=== PATIENT | female | born 2000 | race Caucasian/White ===

== ENCOUNTER 2022-11-24 11:02 | Outpatient (OUT) | payer BC, SELFPAY ==
[2022-11-24 10:11] LABS: Basophils Absolute Auto 0.1 10^3/uL (0.0-0.1); Basophils Percent Auto 0.5 % (0.2-2.0); Eosinophils Absolute Auto 0.1 10^3/uL (0.0-0.7); Eosinophils Percent Auto 1.2 % (0.9-7.0); Hematocrit 45.8 % (36.0-48.0); Hemoglobin 15.1 g/dL (12.0-16.0); Immature Granulocytes Abs Auto 0.04 10^3/uL (0.00-0.03); Immature Granulocytes Pct Auto 0.4 % (0.0-0.5); Lymphocytes Absolute Auto 3.2 10^3/uL (1.2-3.8); Lymphocytes Percent Auto 30.4 % (20.5-60.0); Mean Corpuscular Hemoglobin 28.8 pg (26.7-34.0); Mean Corpuscular Volume 87.2 fL (81.0-99.0); Mean Platelet Volume 11.1 fL (9.5-13.5); Monocytes Absolute Auto 0.6 10^3/uL (0.3-0.8); Monocytes Percent Auto 5.8 % (1.7-12.0); Neutrophils Absolute Auto 6.4 10^3/uL (1.4-6.5); Neutrophils Percent Auto 61.7 % (43.0-75.0); Platelet Count 344 10^3/uL (150-450); Red Blood Count 5.25 10^6/uL (4.20-5.40); Red Cell Distribution Width 12.4 % (11.0-15.0); White Blood Count 10.4 10^3/uL (4.0-11.0)
[2022-11-24 14:28] LABS: Alanine Aminotransferase 26 U/L (14-59); Albumin Globulin Ratio 0.9; Albumin Level 3.8 g/dL (3.4-5.0); Alkaline Phosphatase 102 U/L (46-116); Aspartate Amino Transferase 9 U/L (15-37); Bilirubin Total 0.3 mg/dL (0.2-1.0); Carbon Dioxide 30.1 mmol/L (21.0-32.0); Chloride 105 mmol/L (98-107); Chol HDL Ratio 3.5; Cholesterol 140 mg/dL (104-227); Estimated GFR (African America >60 (>=60); Estimated GFR (Non-African Ame >60 (>=60); Globulin 4.4 g/dL; Glucose 98 mg/dL (74-106); HDL Cholesterol 40 mg/dL (29-69); LDL Cholesterol Calculated 80.8 mg/dL; Potassium 4.1 mmol/L (3.5-5.1); Sodium 140 mmol/L (136-145); Thyroid Stimulating Hormone 1.222 uIU/mL (0.516-4.130); Total Protein 8.2 g/dL (6.4-8.2); Triglycerides 96 mg/dL (53-208); VLDL CHOLESTEROL 19.2 mg/dL
[2022-11-25 01:56] LABS: Estimated Average Glucose 108 mg/dL; Glycohemoglobin A1C 5.4 % (4.5-6.2)
== END 2022-11-24 11:03 | disposition home or self-care (01) ==
LOC: LAB 11:02
PROVIDERS: PCP Family Medicine; Visit Provider Family Medicine
DX: Z00.00 Encounter for general adult medical examination without abnormal findings (principal)
CPT/HCPCS: 36415; 80053; 80061; 83036; 84443; 85025

== ENCOUNTER 2023-12-10 11:49 | Outpatient (OUT) | payer BC, SELFPAY ==
[2023-12-10 13:09] LABS: Basophils Absolute Auto 0.1 10^3/uL (0.0-0.1); Basophils Percent Auto 0.4 % (0.2-2.0); Eosinophils Absolute Auto 0.1 10^3/uL (0.0-0.7); Eosinophils Percent Auto 0.7 % (0.9-7.0); Hematocrit 48.3 % (36.0-48.0); Hemoglobin 15.9 g/dL (12.0-16.0); Immature Granulocytes Abs Auto 0.04 10^3/uL (0.00-0.03); Immature Granulocytes Pct Auto 0.3 % (0.0-0.5); Lymphocytes Absolute Auto 4.4 10^3/uL (1.2-3.8); Lymphocytes Percent Auto 32.2 % (20.5-60.0); Mean Corpuscular HGB Conc 32.9 g/dL (29.9-35.2); Mean Corpuscular Hemoglobin 29.1 pg (26.7-34.0); Mean Corpuscular Volume 88.3 fL (81.0-99.0); Mean Platelet Volume 11.4 fL (9.5-13.5); Monocytes Absolute Auto 0.9 10^3/uL (0.3-0.8); Monocytes Percent Auto 6.2 % (1.7-12.0); Neutrophils Absolute Auto 8.3 10^3/uL (1.4-6.5); Neutrophils Percent Auto 60.2 % (43.0-75.0); Platelet Count 430 10^3/uL (150-450); Red Blood Count 5.47 10^6/uL (4.20-5.40); Red Cell Distribution Width 12.5 % (11.0-15.0); White Blood Count 13.7 10^3/uL (4.0-11.0)
[2023-12-10 13:14] LABS: Alanine Aminotransferase 17 U/L (14-59); Albumin Globulin Ratio 1.1; Alkaline Phosphatase 89 U/L (46-116); Anion Gap 15.3; Aspartate Amino Transferase 17 U/L (15-37); BUN Creatinine Ratio 12.2; Bilirubin Total 0.6 mg/dL (0.2-1.0); Calcium 9.8 mg/dL (8.5-10.1); Carbon Dioxide 25.6 mmol/L (21.0-32.0); Chloride 104 mmol/L (98-107); Chol HDL Ratio 2.9; Cholesterol 132 mg/dL (<=200); Estimated GFR (African America >60 (>=60 mL/min/1.73m^2); Estimated GFR (Non-African Ame >60 (>=60 mL/min/1.73m^2); Globulin 3.7 g/dL; Glucose 92 mg/dL (74-106); HDL Cholesterol 46 mg/dL (40-60); LDL Cholesterol Calculated 71.6 mg/dL; Potassium 3.9 mmol/L (3.5-5.1); Sodium 141 mmol/L (136-145); Thyroid Stimulating Hormone 1.794 uIU/mL (0.358-3.740); Total Protein 7.7 g/dL (6.4-8.2); Triglycerides 72 mg/dL (<=150); VLDL CHOLESTEROL 14.4 mg/dL
[2023-12-10 16:09] LABS: Estimated Average Glucose 103 mg/dL; Glycohemoglobin A1C 5.2 % (4.5-6.2)
== END 2023-12-10 11:50 | disposition home or self-care (01) ==
LOC: LAB 11:49
PROVIDERS: PCP Family Medicine; Visit Provider Nurse Practitioner Family
DX: Z00.00 Encounter for general adult medical examination without abnormal findings (principal)
CPT/HCPCS: 80053; 80061; 83036; 84443; 85025

== ENCOUNTER 2024-08-16 12:04 | Outpatient (OUT) | payer SELFPAY ==
--- OUTSIDE RECORDS SUMMARY | 2024-08-16 12:14 | XMS_ITS | Clinical Summary ---
Author Organization [facility] Healthcare Address [address] [place] [address] Care Team Providers Care Senior Energy Trader Name Role Phone Kathya Olivo MD Primary Care Provider [phone] Allergies No known active allergies Medications albuterol HFA 90 mcg/act inhaler Inhale 2 puffs every 4 (four) hours. Active Drysol 20 % external solution Apply 20 % topically in the morning and 20 % before bedtime. 2 Active Apri 0.15-30 MG-MCG tablet Take 1 tablet by mouth in the morning. 3 Active Hospital, Clinic, or Other Facility Administered Medication Ordered Dose Route Frequency Start Date End Date Status etonogestrel-eluting 68 mg contraceptive implant 1 eachIndications:Insertion of Nexplanon 1 each [place] Continuous 03/28/2024 03/28/2027 Active Active Problems No known active problems Family History Medical History Relation Name Comments Diabetes Father Hypertension Father Relation Name Status Comments Father Alive Mother Alive Social History Tobacco Use Types Packs/Day Years Used Date Smoking Tobacco: Never Passive Smoke Exposure: Never Smokeless Tobacco: Never Tobacco Cessation:Counseling Given: Yes Alcohol Use Standard Drinks/Week Comments Never 0 (1 standard drink = 0.6 oz pur e alcohol) Comments Unknown Sex and Gender Information Value Date Recorded Sex Assigned at Not on file Legal Sex Female 10:14 PM EDT Gender Identity Not on file Sexual Orientation Not on file Last Filed Vital Signs Vital Sign Reading Time Taken Comments Blood Pressure 118/72 03/28/2024 10:28 AM EST Pulse 89 08/31/2023 3:25 PM EDT Temperature - - Respiratory Rate - - Oxygen Saturation - - Inhaled Oxygen Concentration - - Weight 89.9 kg (198 lb 1.9 oz) 03/28/2024 10:28 AM EST Height 167.6 cm (5' 6 ) 08/31/2023 3:25 PM EDT Body Mass Index 31.98 08/31/2023 3:25 PM EDT Plan of Treatment Health Maintenance Due Date Last Done Comments Influenza Vaccine (Season Ended) 2024 Insurance [employer] [place] Care Teams Senior Energy Trader Relationship Specialty Start Date End Date Kathya Olivo MD PCP - General Family Medicine 07/23/22
--- OUTSIDE RECORDS SUMMARY | 2024-08-16 12:14 | XMS_ITS | Clinical Summary ---
Author Organization [facility] Address [address] [place] [address] Care Team Providers Care Photovoltaic Fabrication Technician Name Role Phone Kathya Olivo MD Primary Care Provider [phone] Allergies No known active allergies Medications Norethindrone Acet-Ethinyl Est 1.5-30 mg-mcg Take 1 tablet by mouth once daily. Active omeprazole (PRILOSEC) 40 mg capsule Take 40 mg by mouth once daily. Active norgestimate 0.25 mg-ethinyl estradiol 35 mcg (SPRINTEC, ORTHO-CYCLEN) 0.25-35 mg-mcg per tablet Take 1 tablet by mouth once daily. Active albuterol sulfate 90 mcg/actuation aebs Inhale as instructed. Active FLUoxetine (PROZAC) 20 mg capsule Take 20 mg by mouth once daily. 11/04/2021 Active Active Problems Problem Noted Date Diagnosed Date Iron deficiency anemia due to chronic blood loss 09/13/2021 Immunizations Immunization Administration Dates Next Due Haemophilus influenzae b (Hi b) vaccine, unspecified formulation 04/22/2004 Haemophilus influenzae b-hep atitis B (Hib-HepB) vaccine (COMVAX) 08/14/2003,05/19/2003,03/15/2003 diphtheria tetanus pertussis (DTaP) vaccine, unspecified formulation 06/01/2008,04/22/2004,08/14/2003,05/18,03/15/2003 hepatitis A (HepA) vaccine, unspecified formulation 02/06/2009,06/01/2008 human papillomavirus (HPV4) vaccine, quadrivalent (GARDASIL) 09/27/2015 human papillomavirus (HPV9) vaccine, 9 valent (GARDASIL 9) 04/15/2016,12/11/2015 measles mumps rubella (MMR) vaccine (M-M-R II, PRIORIX) 06/01/2008,01/08/2004 meningococcal (MenACWY-D) va ccine, quadrivalent (MENACTRA) 08/28/2020,09/27/2015 novel influenza (I8S2-98) vaccine, PF 01/31/2009 pneumococcal (PCV7) vaccine, 7 valent (PREVNAR 7) 04/22/2004,01/08/2004,05/19/2003,03/15 poliovirus (IPV) vaccine, in activated (IPOL) 06/01/2008,08/14/2003,05/19/2003,03/15 tetanus diphtheria pertussis (Tdap) vaccine, age 7+ yr (ADACEL, BOOSTRIX) 09/27/2015 varicella (SABA) vaccine (VARIVAX) 06/01/2008, Social History Tobacco Use Types Packs/Day Years Used Date Smoking Tobacco: Never Smokeless Tobacco: Never Alcohol Use Standard Drinks/Week Comments Never 0 (1 standard drink = 0.6 oz pur e alcohol) Area Deprivation Index Answer Date Shen rded National Score (1-100), lower number is lower ri sk 70 03/07/2022 State Score (1-10), lower number is lower risk N ot on file 03/07/2022 Data from: https://www.neighborhoodatlas.medicine.[facility].edu/. Last address used for calculation [address] [place] [address] 03/07/2022 Comments No Sex and Gender Information Value Date Recorded Sex Assigned at Not on file Legal Sex Female 2:36 PM EDT Gender Identity Not on file Sexual Orientation Not on file Last Filed Vital Signs Vital Sign Reading Time Taken Comments Blood Pressure 134/83 11/12/2021 3:37 PM EDT Pulse 85 11/12/2021 3:37 PM EDT Temperature 36.6 C (97.8 F) 11/12/2021 3:37 PM EDT Respiratory Rate 16 11/12/2021 3:37 PM EDT Oxygen Saturation 98% 11/12/2021 3:37 PM EDT Inhaled Oxygen Concentration - - Weight 97.7 kg (215 lb 6.4 oz) 11/12/2021 3:37 P M EDT Height 167.6 cm (5' 6 ) 09/13/2021 3:30 PM EDT Body Mass Index - - Plan of Treatment Health Maintenance Due Date Last Done Comments Peds To Adult Transition Ini tial Discussion 2014 Peds To Adult Transition Zeina ual Assessment 2016 Meningococcal B Vaccine (1 o f 2 - Standard) 2018 Anxiety Screening 2020 Chlamydia Screening (18-24) 2020 Depression Screening 2020 GC (Gonorrhea) Screening (18-24) 2020 HIV Screening 2020 Hepatitis C Screening 2020 Covid-19 Vaccine (2023-2 5 season) 2023 04/29/2021, 08/02/2020, 07/12/2020 Cervical Cancer Screening 12/26/2023 Influenza Vaccine (Season Ended) 2024 02/01/20 09 DTaP,Tdap,Td Vaccine (7 - Td or Tdap) 09/26/2025 09/27/2015, 06/01/2008, 04/22/2004, Additional history exists Hepatitis B Vaccine Completed 08/14/2003, 05/19/2003, 03/15/2003 HPV Vaccine Completed 04/15/2016, 11/23, 09/27/2015 Insurance PPO [employer] [place] Care Teams Photovoltaic Fabrication Technician Relationship Specialty Start Date End Date Kathya Olivo MD PCP - General Family Medicine 09/06/21
--- OUTSIDE RECORDS SUMMARY | 2024-08-16 12:14 | XMS_ITS | Encounter Summary ---
Author Organization [facility] Address [address] [place] [id number] Care Team Providers Care Network Security Consultant Name Role Phone Kathya Olivo MD Primary Care Provider [phone] Source Comments In the event this information is protected by the Federal Confidentiality of Alcohol and Drug AbusePatient Records regulations: The Federal rules restrict any use of the information to criminally investigate or prosecute any alcohol or drug abuse patient.[facility] Encounter Details Date Type Department Care Team (Latest Contact Info) Description 09/09/2021 H&P External-NonCCF Provider, External, PA-C Do not enter address information under generic External Provider. Social History Tobacco Use Types Packs/Day Years Used Date Smoking Tobacco: Never Assessed Area Deprivation Index Answer Date Shen rded National Score (1-100), lower number is lower ri sk 70 09/13/2021 State Score (1-10), lower number is lower risk N ot on file 09/13/2021 Data from: https://www.neighborhoodatlas.medicine.[facility].edu/. Last address used for calculation [address] [place] [address] 09/13/2021 Comments Unknown Sex and Gender Information Value Date Recorded Sex Assigned at Not on file Legal Sex Female 2:36 PM EDT Gender Identity Not on file Sexual Orientation Not on file documented as of this encounter Plan of Treatment Not on file documented as of this encounter Visit Diagnoses Not on filedocumented in this encounter Care Teams Network Security Consultant Relationship Specialty Start Date End Date Kathya Olivo MD PCP - General Family Medicine 09/06/21 documented as of this encounter
--- OUTSIDE RECORDS SUMMARY | 2024-08-16 12:14 | XMS_ITS | Encounter Summary ---
Author Organization [facility] Address [address] [place], [place] [id number] Care Team Providers Care Customer Equipment Engineer Name Role Phone Kathya Olivo MD Primary Care Provider [phone] Source Comments In the event this information is protected by the Federal Confidentiality of Alcohol and Drug AbusePatient Records regulations: The Federal rules restrict any use of the information to criminally investigate or prosecute any alcohol or drug abuse patient.[facility] Encounter Details Date Type Department Care Team (Late st Contact Info) Description 09/12/2021 Abstract Hematology/Oncology [address] [place] [address] [place] [address] Eduardo Martinez MD [address] [place], [place] [id number] Social History Tobacco Use Types Packs/Day Years Used Date Smoking Tobacco: Never Assessed Area Deprivation Index Answer Date Shen rded National Score (1-100), lower number is lower ri sk 70 09/13/2021 State Score (1-10), lower number is lower risk N ot on file 09/13/2021 Data from: https://www.neighborhoodatlas.medicine.[facility].edu/. Last address used for calculation [address] [place] [address] 09/13/2021 Comments Unknown Sex and Gender Information Value Date Recorded Sex Assigned at Not on file Legal Sex Female 2:36 PM EDT Gender Identity Not on file Sexual Orientation Not on file COVID-19 Exposure Response Date Recorded In the last 10 days, have yo u been in contact with someone who was confirmed or suspected to have Coronavirus/COVID-19? No / Unsure 09/13/2021 3:34 PM EDT documented as of this encounter Plan of Treatment Not on file documented as of this encounter Visit Diagnoses Not on filedocumented in this encounter Care Teams Customer Equipment Engineer Relationship Specialty Start Date End Date Kathya Olivo MD PCP - General Family Medicine 09/06/21 documented as of this encounter
[2024-08-17 06:09] LABS: Measles Antibodies, IgG >300.0 AU/mL (Immune >16.4); Mumps Abs, IgG 84.8 AU/mL (Immune >10.9); Rubella Antibodies, IgG 4.27 index (Immune >0.99)
== END 2024-08-16 12:05 | disposition home or self-care (01) ==
PROVIDERS: PCP Family Medicine; Visit Provider Family Medicine
DX: Z00.00 Encounter for general adult medical examination without abnormal findings (principal)
CPT/HCPCS: 86735; 86762; 86765